=== PATIENT | male | born 1955 ===

== ENCOUNTER 2022-07-16 09:31 | Outpatient (CLI) | payer OTHER | END 2022-07-16 09:41 | disposition home or self-care (01) | LOC: PPH VACUNA 09:31 | PROVIDERS: ATTEND Emergency Medicine Pediatric Emergency Medicine | DX: Z23 Encounter for immunization (principal) ==

== ENCOUNTER 2025-03-16 07:43 | Outpatient (CLI) | payer OTHER | END 2025-03-16 07:47 | disposition home or self-care (01) | LOC: SONOGRAMA 07:43 | DX: R10.9 Unspecified abdominal pain (principal); N20.0 Calculus of kidney ==

== ENCOUNTER 2025-03-22 08:36 | Outpatient (CLI) | payer OTHER | END 2025-03-22 08:45 | disposition home or self-care (01) | LOC: TOM 08:36 | DX: N20.1 Calculus of ureter (principal) ==